=== PATIENT | female | born 1985 | race Caucasian/White ===

== ENCOUNTER → 2024-03-29 | Outpatient (CLI) | payer MEDICAID, SELFPAY | END | disposition home or self-care (01) | PROVIDERS: PCP Student in an Organized Health Care Education/Training Program; Referring Provider Internal Medicine Pulmonary Disease; Visit Provider Internal Medicine Pulmonary Disease | DX: J44.1 Chronic obstructive pulmonary disease with (acute) exacerbation (principal) | CPT/HCPCS: 94060; 94726; 94729 ==

== ENCOUNTER → 2024-04-12 | Outpatient (CLI) | payer MEDICAID, SELFPAY ==
[2024-04-12 12:52] VITALS: PULSE 73; PULSE 76; PULSE 91; PULSE 94; PULSE 96; PULSE 97; O2SAT 94; O2SAT 95; O2SAT 96
--- NOTE | 2024-04-12 15:49 | PCM.PSN.6M ---
PSN 6 Minute Walk Test 6 Minute Walk Test 6 Minute Walk Test: 6 Minute Walk Test PSN:6-Minute Walk Test Start: 04/12/24 12:52 Freq: Status: Active Protocol: [id number].[id number] Document 04/12/24 12:52 DANTE (Rec: 04/12/24 12:54 DANTE [id number]) 6 Minute Walk Test Date Performed 04/12/24 Time Performed 12:45 Height 4 ft 11 in Weight: 122.47 kg Weight in Pounds [address]: Minesh Yao V Assistive device used: None Pre-test Oxygen Delivery Method Room Air Pulse Ox (%) 96 Pulse Rate (60-100 beats/min) 76 Dyspnea Isael Scale (0-10) 0 Exertion Isael Scale (6-20) 6 1st minute Oxygen Delivery Method Room Air Pulse Ox (%) 94 Pulse Rate (60-100 beats/min) 91 2nd minute Oxygen Delivery Method Room Air Pulse Ox (%) 94 Pulse Rate (60-100 beats/min) 97 3rd minute Oxygen Delivery Method Room Air Pulse Ox (%) 95 Pulse Rate (60-100 beats/min) 97 4th minute Oxygen Delivery Method Room Air Pulse Ox (%) 96 Pulse Rate (60-100 beats/min) 96 5th minute Oxygen Delivery Method Room Air Pulse Ox (%) 95 Pulse Rate (60-100 beats/min) 94 6th minute Oxygen Delivery Method Room Air Pulse Ox (%) 95 Pulse Rate (60-100 beats/min) 96 Dyspnea Isael Scale (0-10) 3 Exertion Isael Scale (6-20) 13 Post-test Oxygen Delivery Method Room Air Pulse Ox (%) 96 Pulse Rate (60-100 beats/min) 73 Full Laps Walked 15 Partial Lap, Number of Tiles Walked 25 Total Distance Walked (ft) 910 Interpretation Interpretation: Patient was able to ambulate 910 feet over the course of 6 minutes on room air with no assistive devices or breaks. The patient experienced no significant desaturation from a baseline saturation of 96% and no significant tachycardia with a peak heart rate of 97 bpm. These findings are consistent with a normal walking oximetry. Recommendations Recommendations: No supplemental oxygen is indicated at this time.
== END | disposition home or self-care (01) ==
LOC: PSN 12:36
PROVIDERS: PCP Student in an Organized Health Care Education/Training Program; Referring Provider Internal Medicine Pulmonary Disease; Visit Provider Internal Medicine Pulmonary Disease
DX: J44.1 Chronic obstructive pulmonary disease with (acute) exacerbation (principal)
CPT/HCPCS: 94618